=== PATIENT | female | born 1985 | race Two or more races ===

== ENCOUNTER 2017-08-26 18:38 | Emergency (ER) | payer MEDICAID, SELFPAY ==
[~2017-08-26] VITALS: Ht 160 cm; Wt 53.0 kg
[2017-08-26 21:08] LABS: MEAN CORPUSCULAR HEMOGLOBIN 17.4 pg (27.0-34.8); MEAN CORPUSCULAR VOLUME 60.9 fL (80-100); PLATELET COUNT 236 x10^3/uL (130-400); RED BLOOD COUNT 5.12 x10^6/uL (3.82-5.3); RED CELL DISTRIBUTION WIDTH 21.1 % (9.6-15.2)
[2017-08-26 21:11] LABS: MD YES; MEAN CORPUSCULAR HGB CONC 28.5 g/dL (32.4-35.8)
[2017-08-26 21:16] LABS: ANISOCYTOSIS 2+; BASOS#(MANUAL) 0.13 x10^3/uL (0-0.1); BASOS% (MANUAL) 2 % (0-1); HYPOCHROMIA 1+; LYMPH#(MANUAL) 1.85 x10^3/uL (1-3.4); LYMPHS% (MANUAL) 28 % (22-44); MICROCYTOSIS 2+; MONOS% (MANUAL) 3 % (2-9); SEG#(MANUAL) 4.42 x10^3/uL (1.8-6.8); SEGS% (MANUAL) 67 % (42-75)
[2017-08-26 21:17] LABS: POLYCHROMASIA 1+
[2017-08-26 21:23] LABS: <PLATELET ESTIMATE> ADEQUATE; <PLT MORPHOLOGY> NORMAL PLT MORPH
[2017-08-26] MEDS ORDERED: IBUPROFEN 800 MG TABLET PO STA (22:05)
[2017-08-26 22:06] VITALS: BP 139/95
[2017-08-26] MEDS ORDERED: CEPHALEXIN 500 MG CAPSULE ONE (22:10)
[2017-08-26] MEDS ORDERED: ONDANSETRON ODT 4 MG ONE (22:10)
[2017-08-26] MEDS ORDERED: IBUPROFEN 200 MG TABLET ONE (22:11)
[2017-08-26] MEDS ORDERED: OXYcodone/APAP 5/325MG TABLET ONE (22:11)
[2017-08-26] MEDS ORDERED: OXYcodone/APAP 5/325MG TABLET PO ONE (22:30)
[2017-08-26] MEDS ORDERED: ONDANSETRON ODT 4 MG PO ONE (22:30)
[2017-08-26] MEDS ORDERED: CEPHALEXIN 500 MG CAPSULE PO ONE (22:30)
== END 2017-08-26 22:51 | disposition home or self-care (01) ==
LOC: ED 22:45
DX: I80.8 Phlebitis and thrombophlebitis of other sites (principal); Z87.81 Personal history of (healed) traumatic fracture
CPT/HCPCS: 36415; 71046; 85025; 93971; 99285; Q0162